=== PATIENT | female | born 1990 | race Caucasian/White ===

== ENCOUNTER 2020-07-25 15:06 | Emergency (ER) | payer OTHER ==
[~2020-07-25] VITALS: Ht 170.2 cm; Wt 69.4 kg
[2020-07-25 15:30] VITALS: BP_SYST 109
--- NOTE | 2020-07-25 15:30 | NUR ---
Patient to ER bed 8 to gown for evaluation. Side rails up.
--- NOTE | 2020-07-25 15:35 | NUR ---
pt referred from Dr. William office to come to the ER to have a midline check. Per the pt's home health nurse, the midline has been leaking around the site. Pt also reported that one port was clogged. Both midline ports were flushed. Both ports are patent. Pt reports a "weird, somewhat stinging sensation" when both ports are flushed.
--- NOTE | 2020-07-25 16:19 | NUR ---
pt does not want to have midline confirmed by CXR. Pt was educated prior to having the the chest x-ray that she will be shielded. Pt was educated that an US is used for placement of the midline but not to confirm placement. Pt continues to refuse the CXR.
--- NOTE | 2020-07-25 16:35 | NUR ---
DR GILBERT SPOKE WITH DR HUYNH ABOUT HAVING CONFIRMATION DONE BY ULTRASOUND, DR HUYNH STATES IT CAN NOT BE DONE. DR GILBERT IN TO SPEAK WITH PT.
--- NOTE | 2020-07-25 16:49 | NUR ---
NS 250ml bag currently infusing on the first port to verify if the site is leaking
--- NOTE | 2020-07-25 17:20 | NUR ---
pt had CXR to confirm midline placement
--- NOTE | 2020-07-25 17:30 | NUR ---
second midline port infusing NS 250ml. Will monitor for any leaking.
--- NOTE | 2020-07-25 18:29 | NUR ---
DR GILBERT IN TO SPEAK WITH PT.
[2020-07-25 18:48] VITALS: BP_SYST 98
--- NOTE | 2020-07-25 18:59 | NUR ---
offered to remove LUE midline. Pt stated that she prefers to wait for the PICC line nurse tomorrow
[2020-07-26] MEDS ORDERED: ASPI-1457 PO (16:14)
== END 2020-07-25 18:59 | disposition home or self-care (01) ==
LOC: SED 15:06
DX: O26.891 Other specified pregnancy related conditions, first trimester (principal); T82.898A Other specified complication of vascular prosthetic devices, implants and grafts, initial encounter; Z3A.13 13 weeks gestation of pregnancy; X58.XXXA Exposure to other specified factors, initial encounter
CPT/HCPCS: 71045; 99285

== ENCOUNTER 2020-07-26 12:43 | Emergency (ER) | payer OTHER, BC ==
[~2020-07-26] VITALS: Ht 170.2 cm; Wt 69.4 kg
[2020-07-26 12:53] VITALS: BP_SYST 125
--- NOTE | 2020-07-26 12:55 | NUR ---
pt arrives from home for PICC line placement. Referred by Dr. William. Consent for PICC line obtained. PICC line nurse will be here at 1330.
--- NOTE | 2020-07-26 12:59 | NUR ---
Patient to ER bed 6 to gown for evaluation. Side rails up.
[2020-07-26 13:26] LABS: PROTHROMBIN TIME 9.8 SECS (9.5-12.5)
[2020-07-26] MEDS: ONDANSETRON 4 MG ODT TAB PO ONE (13:36)
--- NOTE | 2020-07-26 14:00 | NUR ---
PICC line nurse at bedside for PICC placement. Consent signed and placed on chart. All supplies at bedside along with ultrasound machine.
[2020-07-26] MEDS ORDERED: ASPI-1457 PO (16:14)
[2020-07-26 16:27] VITALS: BP_SYST 118
--- NOTE | 2020-07-26 16:27 | NUR ---
Patient given written and verbal discharge instructions and verbalizes understanding. ER MD discussed with patient the results and treatment provided. Patient in stable condition. ID arm band removed. Rx of aspirin 162 mg daily given. Patient educated on pain management and to follow up with PMD. Pain Scale 0/10 Opportunity for questions provided and answered. Medication side effect fact sheet provided.
== END 2020-07-26 16:32 | disposition home or self-care (01) ==
LOC: SED 12:43
DX: I82.890 Acute embolism and thrombosis of other specified veins (principal)
CPT/HCPCS: 36415; 71045; 85610; 85730; 93971; 99285; Q0162

== ENCOUNTER 2020-11-12 11:31 | Outpatient (CLI) | payer OTHER, MEDICAID, BC ==
[~2020-11-12 11:31] MED LIST: ASPI-1457 PO
== END 2020-11-12 21:20 | disposition home or self-care (01) ==
LOC: SLB 11:31
PROVIDERS: ATTEND Physician Assistant
DX: Z34.83 Encounter for supervision of other normal pregnancy, third trimester (principal); Z3A.00 Weeks of gestation of pregnancy not specified
CPT/HCPCS: 36415; 82947

== ENCOUNTER 2021-01-02 15:09 | Outpatient (CLI) | payer OTHER, BC ==
[2021-01-02 23:16] LABS: BASOPHILS % (AUTO) 0.4 % (0.0-2.0); EOSINOPHILS # (AUTO) 0.1 K/uL (0.0-0.4); EOSINOPHILS % (AUTO) 1.4 % (0.0-4.0); HEMATOCRIT 34.3 % (36-48); HEMOGLOBIN 11.4 g/dL (12.0-16.0); LYMPHOCYTES # (AUTO) 1.6 K/uL (1.0-5.5); MEAN CORPUSCULAR HEMOGLOBIN 31 pg (27-31); MEAN CORPUSCULAR HGB CONC 33 % (32-36); MEAN CORPUSCULAR VOLUME 94 fL (79.0-98.0); MONOCYTES # (AUTO) 0.7 K/uL (0.0-1.0); MONOCYTES % (AUTO) 7.3 % (1.7-9.3); NEUTROPHILS # (AUTO) 7.3 K/uL (1.8-7.7); NEUTROPHILS % (AUTO) 74.9 % (40.0-70.0); PLATELET COUNT (AUTO) 291 K/uL (130-430); RED BLOOD CELL COUNT(AUTO) 3.66 MIL/uL (4.2-6.2); WHITE BLOOD COUNT (AUTO) 9.8 K/uL (4.8-10.8)
[2021-01-03 05:08] LABS: RUBELLA AB, IgG 1.87 index (Immune >0.99)
[2021-01-03 06:06] LABS: HEPATITIS B SURFACE AG Negative (Negative)
[2021-01-04 05:08] LABS: RUBELLA AB, IgM <20.0 AU/mL (0.0-19.9)
== END 2021-01-02 20:51 | disposition home or self-care (01) ==
LOC: SLB 15:09
PROVIDERS: ATTEND Physician Assistant
DX: Z34.83 Encounter for supervision of other normal pregnancy, third trimester (principal); Z3A.00 Weeks of gestation of pregnancy not specified
CPT/HCPCS: 36415; 85025; 86592; 86762; 86780; 86886; 86900; 86901; 87340